=== PATIENT | female | born 1960 | race Caucasian/White ===

== ENCOUNTER 2016-12-29 10:57 | Emergency (ER) | payer BC, OTHER ==
[2016-12-29 11:06] VITALS: BP 113/78
--- NOTE | 2016-12-29 11:20 | UC ---
Skin Complaint HPI - HPI Summary HPI Summary: Patient found a tick from her walk outside yesterday. she removed it, does not think it was alive, and it was not engorged. - History of Current Complaint Chief Complaint: UCSkin Time Seen by Provider: 12/29/16 11:09 Stated Complaint: TICK BITE Hx Obtained From: Patient ?: No Onset/Duration: Sudden Onset, Lasting Hours Skin Exposure Onset/Duration: Hours Ago Timing: Constant Onset Severity: Mild Current Severity: None Pain Intensity: 0 Pain Scale Used: 0-10 Numeric Location: Discrete - right thigh Character: Pruritus, Redness Aggravating: Nothing Alleviating: Nothing Related History: Other: - tick - Allergy/Home Medications Allergies/Adverse Reactions: Allergies Allergy/AdvReac Type Severity Reaction Status Date / Time Sulfa Drugs Allergy Mild Rash Verified 06/18/12 09:17 Review of Systems Constitutional: Negative Skin: Other - redness Eyes: Negative ENT: Negative Respiratory: Negative Cardiovascular: Negative Gastrointestinal: Negative Genitourinary: Negative Motor: Negative Neurovascular: Negative Musculoskeletal: Negative Neurological: Negative Psychological: Negative All Other Systems Reviewed And Are Negative: Yes PMH/Surg Hx/FS Hx/Imm Hx Previously Healthy: Yes - Surgical History Surgical History: Yes Surgery Procedure, Year, and Place: knee - Family History Known Family History: Negative: Cardiac Disease, Hypertension - Social History Alcohol Use: Weekly Substance Use Type: None Smoking Status (MU): Never Smoked Tobacco Physical Exam Triage Information Reviewed: Yes Appearance: Well-Appearing, Well-Nourished, Pain Distress Vital Signs: Initial Vital Signs Temp 97.0 F 12/29/16 11:02 Pulse 72 12/29/16 11:02 Resp 16 12/29/16 11:02 BP 113/78 12/29/16 11:02 Pulse Ox 99 12/29/16 11:02 Vital Signs Reviewed: Yes Eye Exam: Normal Eyes: Positive: Conjunctiva Clear ENT Exam: Normal ENT: Positive: Hearing grossly normal, Pharynx normal, TMs normal Dental Exam: Normal Neck exam: Normal Neck: Positive: Supple, Nontender, No Lymphadenopathy Respiratory Exam: Normal Respiratory: Positive: Chest non-tender, Lungs clear, Normal breath sounds Cardiovascular Exam: Normal Cardiovascular: Positive: RRR, No Murmur, Pulses Normal Abdominal Exam: Normal Abdomen Description: Positive: Nontender, No Organomegaly, Soft Bowel Sounds: Positive: Present Musculoskeletal Exam: Normal Musculoskeletal: Positive: Strength Intact, ROM Intact, No Edema Neurological Exam: Normal Neurological: Positive: Alert, Muscle Tone Normal Psychological Exam: Normal Skin: Positive: Other - small 2 cm area of erythema. no evidence of remains in skin Course/Dx - Course Course Of Treatment: hx obtained, exam performed, educated on warning signs of lyme. - Differential Diagnoses - Skin Complaint Differential Diagnoses: Abscess, Allergic Reaction, Contact Dermatitis, Urticaria - Diagnoses Provider Diagnoses: tick bite Discharge - Discharge Plan Condition: Stable Disposition: HOME Patient Education Materials: Tick Bite (ED) Referrals: Rasta Post MD [Primary Care Provider] - Additional Instructions: No treatment needed today, watch for signs of lyme and follow up as needed.
== END 2016-12-29 11:24 | disposition home or self-care (01) ==
LOC: UCEAST 10:57
DX: S70.361A Insect bite (nonvenomous), right thigh, initial encounter (principal); W57.XXXA Bitten or stung by nonvenomous insect and other nonvenomous arthropods, initial encounter; Z88.2 Allergy status to sulfonamides
CPT/HCPCS: 99201; G0463

== ENCOUNTER 2017-08-11 11:41 | Emergency (ER) | payer BC ==
[2017-08-11 13:48] VITALS: BP 121/82
--- NOTE | 2017-08-22 18:04 | UC ---
Pankaj Mix Angela, scribed for LamarKennedi DO William on 08/11/17 at 1332 . Skin Complaint HPI - HPI Summary HPI Summary: This pt is a 57 y/o female presenting to [facility] c/o right third finger erythema and swelling x3 days. Pt notes it is painful. Pt has washed it in hot water. She has soaked her finger in cold water, applied neosporin and a bandage with no relief. Pt notes she doesn't take great care of her nails but denies biting her nails. No trauma to her finger. She states that sitting down, at rest, she rates her pain 5/10 in severity. At its worse her pain is rated 9/10 in severity. 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 Pt denies fever, chills, nausea, vomiting, abd pain, chest pain, SOB, cough, sore throat. PMHx chronic back pain, spinal stenosis. Allergies include Sulfa drugs. - History of Current Complaint Chief Complaint: LORkin Stated Complaint: FINGER PAIN, RIGHT HAND Hx Obtained From: Patient Onset/Duration: Lasting Days, Still Present Skin Exposure Onset/Duration: Days Ago Timing: Constant Current Severity: Moderate Pain Intensity: 5 Pain Scale Used: 0-10 Numeric Location: Hand (Right) - third finger Character: Swelling, Pain, Redness Aggravating Factor(s): Touch Associated Signs & Symptoms: Positive: Tenderness. Negative: Nausea, Vomiting, Fever, Chills, Cough, Chest Pain - Allergy/Home Medications Allergies/Adverse Reactions: Allergies Allergy/AdvReac Type Severity Reaction Status Date / Time Sulfa Drugs Allergy Mild Rash Verified 08/11/17 11:44 Review of Systems Constitutional: Negative Skin: Other - erythema on right third finger Eyes: Negative ENT: Negative Respiratory: Negative Cardiovascular: Negative Gastrointestinal: Negative Genitourinary: Negative Motor: Negative Neurovascular: Negative Musculoskeletal: Other: - chronic back pain, right third finger pain Neurological: Negative Psychological: Negative Is Patient Immunocompromised?: No All Other Systems Reviewed And Are Negative: Yes PMH/Surg Hx/FS Hx/Imm Hx - Additional Past Medical History Additional PMH: PMHx: spinal stenosis Other Endocrine History: DENIES: diabetes Other Cardiovascular History: DENIES: HTN - Surgical History Surgical History: Yes Surgery Procedure, Year, and Place: knee - Family History Known Family History: Positive: Other - Mother: rheumatoid arthritis, spinal stenosis Negative: Cardiac Disease, Hypertension - Social History Alcohol Use: Weekly Substance Use Type: None Smoking Status (MU): Never Smoked Tobacco Physical Exam Triage Information Reviewed: Yes Appearance: Well-Appearing, No Pain Distress, Well-Nourished Vital Signs: Initial Vital Signs Temp 97.1 F 08/11/17 11:45 Pulse 64 08/11/17 11:45 Resp 16 08/11/17 11:45 BP 109/61 08/11/17 11:45 Pulse Ox 100 08/11/17 11:45 Vital Signs Reviewed: Yes Eyes: Positive: Conjunctiva Clear. Negative: Discharge ENT: Positive: Hearing grossly normal. Negative: Muffled voice, Hoarse voice Neck exam: Normal Neck: Positive: Supple Respiratory: Positive: Lungs clear, Normal breath sounds, No respiratory distress, No accessory muscle use Cardiovascular: Positive: RRR, No Murmur Musculoskeletal Exam: Other - RUE: Mild swelling, erythema, tenderness and calor of the nail bed of the right middle finger. no circumferential joint swelling/redness, tenderness. No fluctuance. Neurological: Positive: Alert, Muscle Tone Normal Psychological Exam: Normal Psychological: Positive: Age Appropriate Behavior Skin Exam: Normal Course/Dx - Course Course Of Treatment: Medications reviewed this visit. Pt was discharged home with Augmentin. She is advised to follow up with her PCP. Pt was given strict instructions to return to the ED. - Differential Diagnoses - Skin Complaint Differential Diagnoses: Abscess, Cellulitis - Diagnoses Provider Diagnoses: Paronychia Discharge - Discharge Plan Condition: Stable Disposition: HOME Prescriptions: Amoxicillin/Clavulanate TAB* [Augmentin TAB 875*] 875 mg PO BID #20 tab Patient Education Materials: Paronychia (ED), Warm Compress or Soak (ED) Referrals: Andreas Otto MD [Primary Care Provider] - 2 Days Additional Instructions: AUGMENTIN: Augmentin is a mixture of amoxicillin and clavulanate. Amoxicillin is a member of the penicillin family. It covers the germs likely to cause ear, bronchial, and urinary infections better than plain penicillin. The addition of clavulanate allows it to cover staph infections of the skin, as well as resistant cases of ear and sinus infections. Your physician has chosen Augmentin for you because of the special nature of your situation. Augmentin is best taken with meals. Nausea after taking the medication is rare, but can occur. Diarrhea can occur, particularly in small children. Vaginal yeast infections, and oral thrush in infants are also common. Contact your physician if these problems occur. Allergy to penicillins is common. If you have had an allergic reaction to any drug of the penicillin family, you should never take any other penicillin. Notify your doctor at once if you develop hives, shortness of breath, swelling, or faintness. ANYTIME YOU TAKE AN ANTIBIOTIC, IT IS IMPORTANT TO REPLENISH THE BODY'S SUPPLY OF "GOOD BACTERIA." YOU CAN GET GOOD BACTERIA FROM HIGH QUALITY CULTURED FOODS SUCH LOCAL YOGURT, SOUR KRAUT, STEVEN RAHUL, NATURALLY FERMENTED PICKLES AND PROBIOTIC DRINKS. YOU CAN ALSO GET GOOD BACTERIA FROM A PROBIOTIC SUPPLEMENT. FOLLOW UP IN 3-5 DAYS IF NOT IMPROVING. FOLLOW UP SOONER IF SYMPTOMS WORSEN OR NEW ONES DEVELOP. The documentation as recorded by the Pankaj lowery Angela accurately reflects the service I personally performed and the decisions made by me, Kennedi Newton DO.
== END 2017-08-11 13:50 | disposition home or self-care (01) ==
LOC: UCEAST 11:41
DX: L03.011 Cellulitis of right finger (principal); M48.00 Spinal stenosis, site unspecified; Z88.2 Allergy status to sulfonamides
CPT/HCPCS: 99212; G0463